=== PATIENT | female | born 2000 | race Caucasian/White ===

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

== ENCOUNTER 2019-01-29 19:11 | Emergency (ER) | payer MEDICAID ==
--- NOTE | 2019-01-29 19:48 | ER Document Report ---
ED Medical Screen (RME) - General Chief Complaint: Irregular Pulse Stated Complaint: RAPID HEART RATE Time Seen by Provider: 01/29/19 19:45 Primary Care Provider: ELMA LUIS MD [Primary Care Provider] - Follow up as needed Mode of Arrival: Ambulatory Information source: Patient Notes: Patient presents emergency department complaints of palpitations. Reports her heart will beat fast and then slowed down. Denies other symptoms such as nausea fever vomiting diarrhea. Patient is approximately 33 weeks G1, P0 denies abdominal pain. Denies pain with void. Denies vaginal bleeding. I have greeted and performed a rapid initial assessment of this patient. A comprehensive ED assessment and evaluation of the patient, analysis of test results and completion of the medical decision making process will be conducted by additional ED providers. Dictation of this chart was performed using voice recognition software; therefore, there may be some unintended grammatical errors. TRAVEL OUTSIDE OF THE [place] IN LAST 30 DAYS: No - Related Data Allergies/Adverse Reactions: No Known Allergies Allergy (Verified 01/29/19 19:35) Past Medical History - Social History Frequency of alcohol use: None Drug Abuse: None Renal/ Medical History: Denies: Hx Peritoneal Dialysis Physical Exam - Vital signs Vitals: Temp Pulse Resp BP Pulse Ox 98.1 F 66 20 121/68 98 01/29/19 19:12 01/29/19 19:12 01/29/19 19:12 01/29/19 19:12 01/29/19 19:12 Course - Vital Signs Vital signs: Temp Pulse Resp BP Pulse Ox 98.1 F 66 20 121/68 98 01/29/19 19:30 01/29/19 19:30 01/29/19 19:30 01/29/19 19:30 01/29/19 19:30 Doctor's Discharge - Discharge Referrals: ELMA LUIS MD [Primary Care Provider] - Follow up as needed
[2019-01-29 20:21] LABS: ABSOLUTE EOSINOPHILS # (AUTO) 0.1 10^3/uL (0.0-0.6); ABSOLUTE LYMPHOCYTES (AUTO) 3.4 10^3/uL (0.5-4.7); ABSOLUTE MONOCYTES (AUTO) 0.9 10^3/uL (0.1-1.4); ABSOLUTE NEUT (AUTO) 9.3 10^3/uL (1.7-8.2); BASOPHILS % (AUTO) 0.3 % (0-2); EOSINOPHILS % (AUTO) 0.7 % (0-6); HEMATOCRIT 32.9 % (36.0-47.0); HEMOGLOBIN 11.5 g/dL (12.0-15.5); LYMPHOCYTES % (AUTO) 24.5 % (13-45); MEAN CORPUSCULAR HEMOGLOBIN 30.5 pg (27.0-33.4); MEAN CORPUSCULAR VOLUME 87 fl (80-97); MONOCYTES % (AUTO) 6.4 % (3-13); PLATELET COUNT 287 10^3/uL (150-450); RED BLOOD COUNT 3.78 10^6/uL (3.72-5.28); RED CELL DISTRIBUTION WIDTH 13.6 % (11.5-14.0); SEGMENTED NEUTROPHILS % (AUTO) 68.1 % (42-78); TOTAL CELLS COUNTED % (AUTO) 100 %; WHITE BLOOD COUNT 13.7 10^3/uL (4.0-10.5)
[2019-01-29 20:22] LABS: APPEARANCE,URINE SLIGHTLY-CLOUDY; BILIRUBIN,URINE NEGATIVE (NEGATIVE); CALCIUM OXALATE CRYSTALS,URINE FEW /HPF; COLOR,URINE YELLOW; GLUCOSE, URINE NEGATIVE (NEGATIVE); KETONES,URINE NEGATIVE (NEGATIVE); LEUKOCYTE ESTERASE,URINE LARGE (NEGATIVE); NITRITE,URINE NEGATIVE (NEGATIVE); PROTEIN,URINE 30 mg/dL (NEGATIVE); URINE SPECIFIC GRAVITY 1.019
[2019-01-29 20:33] LABS: ALBUMIN 3.7 g/dL (3.7-5.6); ALKALINE PHOSPHATASE 76 U/L (50-135); ANION GAP 9 (5-19); ASPARTATE AMINO TRANSFERASE 11 U/L (5-30); BILIRUBIN,TOTAL 0.6 mg/dL (0.2-1.3); BLOOD UREA NITROGEN 6 mg/dL (7-20); CALCIUM 9.5 mg/dL (8.4-10.2); CARBON DIOXIDE 22 mmol/L (22-30); CHLORIDE 105 mmol/L (98-107); GLUCOSE 86 mg/dL (75-110); POTASSIUM 3.8 mmol/L (3.6-5.0); TOTAL PROTEIN 6.9 g/dL (6.3-8.2)
--- NOTE | 2019-01-30 01:24 | ER Document Report ---
ED General - General Chief Complaint: Irregular Pulse Stated Complaint: RAPID HEART RATE Time Seen by Provider: 01/29/19 19:45 Primary Care Provider: ELMA LUIS MD [Primary Care Provider] - Follow up as needed Mode of Arrival: Ambulatory TRAVEL OUTSIDE OF THE [place] IN LAST 30 DAYS: No - HPI Patient complains to provider of: palpitations Onset: Other - over the last 3 days Onset/Duration: Sudden Quality of pain: No pain Severity: Moderate Pain Level: 3 Associated symptoms: None Exacerbated by: Denies Relieved by: Denies Similar symptoms previously: No Recently seen / treated by doctor: No Notes: 18 year old female who is 33 weeks here for 3 days of palpitations. The patient says she has had 3 episodes of palpiations over the last 3 days (each lasts only a couple minutes). The patient says when it happens she has some mild SOB and dizziness. The patient denies recent fevers, chills, sweats, nausea, vomiting, chest pain, cough, congestion. The is the patient's first . - Related Data Allergies/Adverse Reactions: No Known Allergies Allergy (Verified 01/29/19 19:35) Past Medical History - General Information source: Patient - Social History Smoking Status: Former Smoker Frequency of alcohol use: None Drug Abuse: None Family History: Arthritis, CAD, COPD, CVA, DM, Hyperlipidemia, Hypertension, Malignancy Patient has suicidal ideation: No Patient has homicidal ideation: No Renal/ Medical History: Reports: Other - patient is 33 weeks . Denies: Hx Peritoneal Dialysis Review of Systems - Review of Systems Constitutional: No symptoms reported EENT: No symptoms reported Cardiovascular: Palpitations, Dizziness Respiratory: Short of breath Gastrointestinal: No symptoms reported Genitourinary: No symptoms reported Female Genitourinary: Musculoskeletal: No symptoms reported Skin: No symptoms reported Hematologic/Lymphatic: No symptoms reported Neurological/Psychological: No symptoms reported Physical Exam - Vital signs Vitals: Temp Pulse Resp BP Pulse Ox 98.1 F 66 20 121/68 98 01/29/19 19:12 01/29/19 19:12 01/29/19 19:12 01/29/19 19:12 01/29/19 19:12 - Notes Notes: GENERAL: Well-appearing, well-nourished and in no acute distress. HEAD: Atraumatic, normocephalic. EYES: Pupils equal round and reactive to light, extraocular movements intact, sclera anicteric, conjunctiva are normal. ENT: TMs normal, nares patent, oropharynx clear without exudates. Moist mucous membranes. NECK: Normal range of motion, supple without lymphadenopathy or JVD. LUNGS: Breath sounds clear to auscultation bilaterally and equal. No wheezes rales or rhonchi. HEART: Regular rate and rhythm without murmurs, rubs or gallops. ABDOMEN: Soft, nontender, normoactive bowel sounds. No guarding, no rebound. No masses appreciated. Distention due to being . EXTREMITIES: Normal range of motion, no pitting or edema. No clubbing or cyanosis. NEUROLOGICAL: Cranial nerves II through XII grossly intact. Normal speech, normal gait. PSYCH: Normal mood, normal affect. SKIN: Warm, Dry, normal turgor, no rashes or lesions noted. Course - Re-evaluation Re-evalutation: The patient has had some episodes of palpitations over the last several days. She is and her UA looks infected although she is not having UTI symptoms. Will treat with macrobid and encourage PO fluid intake. Patient has an unremarkable EKG, normal chemistries, she is very low risk for ACS and she is PERC negative making her low risk for PE. Patient told to follow up with her PCP and [facility] doctors. - Vital Signs Vital signs: Temp Pulse Resp BP Pulse Ox 97.4 F 65 20 101/58 L 100 01/30/19 01:29 01/30/19 01:29 01/30/19 01:29 01/30/19 01:29 01/30/19 01:29 - Laboratory Result Diagrams: 01/29/19 20:05 01/29/19 20:05 Laboratory results interpreted by me: 01/29/19 01/29/19 01/29/19 19:50 20:05 20:05 WBC 13.7 H Hgb 11.5 L Hct 32.9 L Absolute Neuts (auto) 9.3 H Sodium 136.0 L BUN 6 L Urine Protein 30 H Urine Urobilinogen 2.0 H Ur Leukocyte Esterase LARGE H - EKG Interpretation by Vt EKG shows normal: Sinus rhythm, ST-T Waves - T wave inverted in III Rate: Normal Rhythm: NSR Discharge - Discharge Clinical Impression: Palpitation Condition: Stable Disposition: HOME, SELF-CARE Instructions: Palpitations (Irregular or Rapid Heartrate) ([facility]), Urinary Tract Infection ([facility]) Additional Instructions: Take antibiotics as prescribed for a UTI. Follow up with your primary care doctor and your [facility] PROGRAM ANALYST Doctor and tell them about your ER visit for palpitations. Seek medical attention for a persistently elevated heart rate or if worse in anyway. Prescriptions: Nitrofurantoin/Nitrofuran Mac [Macrobid 100 mg Capsule] 1 tab PO BID #10 capsule Referrals: ELMA LUIS MD [Primary Care Provider] - Follow up as needed
[2019-01-30 01:30] VITALS: BP 101/58
== END 2019-01-30 02:13 | disposition home or self-care (01) ==
LOC: ER 19:11
DX: O26.893 Other specified pregnancy related conditions, third trimester (principal); R00.2 Palpitations; R42 Dizziness and giddiness; R06.02 Shortness of breath; Z3A.33 33 weeks gestation of pregnancy; Z87.891 Personal history of nicotine dependence
CPT/HCPCS: 36415; 80053; 81001; 85025; 99284

== ENCOUNTER 2019-03-02 14:32 | Outpatient (CLI) | payer MEDICAID ==
[2019-03-02 15:01] LABS: APPEARANCE,URINE SLIGHTLY-CLOUDY; BILIRUBIN,URINE NEGATIVE (NEGATIVE); COLOR,URINE AMBER; GLUCOSE, URINE NEGATIVE (NEGATIVE); KETONES,URINE NEGATIVE (NEGATIVE); LEUKOCYTE ESTERASE,URINE MODERATE (NEGATIVE); NITRITE,URINE NEGATIVE (NEGATIVE); PROTEIN,URINE 100 mg/dL (NEGATIVE); URINE SPECIFIC GRAVITY 1.024
[2019-03-02 15:15] LABS: URINE AMPHETAMINES SCREEN NEGATIVE; URINE BARBITURATES SCREEN NEGATIVE; URINE BENZODIAZEPINES SCREEN NEGATIVE; URINE METHADONE SCREEN NEGATIVE; URINE PHENCYCLIDINE SCREEN NEGATIVE
--- NOTE | 2019-03-02 15:17 | Non Stress Test Report ---
Non Stress Test Datetime Report Generated by CPN: 03/02/2019 15:17 DEMOGRAPHIC Test Number: 1 EGA NST: 38.1 INDICATION Indication for Study (NST) Other: false labor MONITORING Monitor Explained: Monitor Explained; Test Explained; Patient Verbalized Understanding Time on Monitor: 03/02/2019 14:45 Time off Monitor: 03/02/2019 15:15 NST Duration: 30 NST INTERVENTIONS NST Interventions: PO Hydration; Reposition Patient Physician Notified NST: Dr. Simeon BABY A: [id number] BABY A Movement : Present Contraction Frequency : none FHR Baseline : 135 Accelerations : 15X15 Decelerations : None Variability : Moderate 6-25bpm NST Review: Meets Criteria for Reactive NST NST Review and Verified By : TMartin,RN NST Results: Reactive NST REPORT Report Trigger: Send Report
[2019-03-02 15:25] LABS: URINE COCAINE SCREEN NEGATIVE
[2019-03-02] MEDS ORDERED: HYDROXYZINE PAMOATE 50 MG CAPSULE PO ONE (15:27)
[2019-03-02 15:29] LABS: URINE MARIJUANA (THC) SCREEN UNCONFIRMED POSITIVE
[2019-03-02] MEDS ORDERED: HYDROXYZINE PAMOATE 50 MG CAPSULE ONE (15:34)
== END 2019-03-02 15:41 | disposition home or self-care (01) ==
LOC: LC 14:32
PROVIDERS: ATTEND Obstetrics & Gynecology
PROC: 4A1HXCZ Monitoring of Products of Conception, Cardiac Rate, External Approach (ICD-10-PCS; principal; 2019-03-02)
DX: O47.1 False labor at or after 37 completed weeks of gestation (principal); Z3A.38 38 weeks gestation of pregnancy
CPT/HCPCS: 59025; 81005; 80307; G0480 ×2; J3490; 80349

== ENCOUNTER 2019-03-15 14:40 | Inpatient (IN) | payer MEDICAID ==
[2019-03-24] MEDS ORDERED: RINGERS SOLUTION,LACTATED 1,000 ML IV PRN (12:54)
[2019-03-24] MEDS ORDERED: OXYTOCIN/NORMAL SALINE 20 UNIT/1,000 ML RTUINJ IV PRN ×2 (12:54→23:23)
[2019-03-24] MEDS ORDERED: PENICILLIN G POTASSIUM 5,000,000 UNIT in DEXTROSE 5%-WATER 100 ML IV ONE (12:54)
[2019-03-24] MEDS ORDERED: DINOPROSTONE 10 MG VAGINAL INSERT.SR PV PRN (12:54)
[2019-03-24 13:39] LABS: BACTERIA (WET MOUNT) 4+ BACTERIA SEEN; EPITHELIALS (WET MOUNT) 4+ EPITHELIALS SEEN; T.VAGINALIS (WET MOUNT) NO TRICHOMONAS SEEN; WBCS (WET MOUNT) 4+ WBCS SEEN; YEAST (WET MOUNT) NO YEAST SEEN
[2019-03-24 13:57] LABS: URINE AMPHETAMINES SCREEN NEGATIVE; URINE BARBITURATES SCREEN NEGATIVE; URINE BENZODIAZEPINES SCREEN NEGATIVE; URINE COCAINE SCREEN NEGATIVE; URINE METHADONE SCREEN NEGATIVE; URINE PHENCYCLIDINE SCREEN NEGATIVE
[2019-03-24 13:59] LABS: URINE MARIJUANA (THC) SCREEN UNCONFIRMED POSITIVE
[2019-03-24] MEDS ORDERED: OXYTOCIN 10 UNIT/ML VIAL ONE (14:14)
[2019-03-24] MEDS ORDERED: MISOPROSTOL 0.2 MG TABLET ONE (14:14)
[2019-03-24] MEDS ORDERED: LIDOCAINE 1% INJ-PF (10 MG/ML) 30 ML SDV ONE (14:15)
[2019-03-24] MEDS ORDERED: OXYTOCIN/NORMAL SALINE 20 UNIT/1,000 ML RTUINJ ONE (14:15)
[2019-03-24] MEDS ORDERED: METRONIDAZOLE 500 MG TABLET ONE (14:15)
[2019-03-24] MEDS ORDERED: PENICILLIN G-K 5 MILLION UNIT VIAL ONE ×3 (14:15→22:46)
[2019-03-24 14:25] LABS: ABSOLUTE EOSINOPHILS # (AUTO) 0.1 10^3/uL (0.0-0.6); ABSOLUTE LYMPHOCYTES (AUTO) 1.9 10^3/uL (0.5-4.7); ABSOLUTE MONOCYTES (AUTO) 0.8 10^3/uL (0.1-1.4); ABSOLUTE NEUT (AUTO) 8.7 10^3/uL (1.7-8.2); BASOPHILS % (AUTO) 0.2 % (0-2); EOSINOPHILS % (AUTO) 0.6 % (0-6); HEMATOCRIT 33.1 % (36.0-47.0); HEMOGLOBIN 11.5 g/dL (12.0-15.5); LYMPHOCYTES % (AUTO) 16.7 % (13-45); MEAN CORPUSCULAR HGB CONC 34.8 g/dL (32.0-36.0); MEAN CORPUSCULAR VOLUME 89 fl (80-97); PLATELET COUNT 257 10^3/uL (150-450); RED BLOOD COUNT 3.72 10^6/uL (3.72-5.28); RED CELL DISTRIBUTION WIDTH 14.1 % (11.5-14.0); SEGMENTED NEUTROPHILS % (AUTO) 75.5 % (42-78); TOTAL CELLS COUNTED % (AUTO) 100 %; WHITE BLOOD COUNT 11.5 10^3/uL (4.0-10.5)
[2019-03-24] MEDS ORDERED: METRONIDAZOLE 500 MG TABLET PO ONE (14:30)
--- NOTE | 2019-03-24 15:16 | Admission Physical ---
Datetime Report Generated by CPN: 03/24/2019 15:15 CURRENT ADMISSION Chief Complaint: Scheduled Induction of Labor Indication for Induction: Post Dates Admit Impression : Term, Intrauterine Admit Plan: Admit to Unit; Initiate Labor Induction Protocol ALLERGIES Medication Allergies: No Medication Allergies: No Known Allergies (01/29/2019) Latex: No Latex Allergies Food Allergies: None Environmental Allergies: None OBSTETRICAL HISTORY EDC: 03/15/2019 00:00 : 1 Para: 0 Term: 0 : 0 SAB: 0 IAB: 0 Ectopic: 0 Livin Cesareans: 0 VBACs: 0 Multiple Births: 0 Gestational Diabetes: No Rh Sensitization: No Incompetent Cervix: No ADEEL: No Infertility: No ART Treatment: No Uterine Anomaly: No IUGR: No Hx Previous C/S: No Macrosomia: No Hx Loss/Stillborn: No PIH: No Hx : No Placenta Previa/Abruption: No Depression/PP Depression: No PTL/PROM: No Post Hemorrhage: No Obstetrical History Comments: G1- Current SEE RECORDS Alcohol: No Marijuana : Yes Marijuana Frequency: Occasional Last Used: 11/09/2018 00:00 Marijuana Comments: Pt states, "uses occasinally for back pain." Cocaine: No Other Illicit Drugs: No Cigarettes: Former Smoker. [id number] Cigarette Frequency: < 5 per day Cigarette Comments: Stopped when found out . MEDICAL HISTORY Diabetes: No Blood Transfusion: No Pulmonary Disease (Asthma, TB): No Breast Disease: No Hypertension: No Technology Risk Intern Surgery: No Heart Disease: No Hosp/Surgery: No Autoimmune Disorder: No Anesthetic Complications: No Kidney Disease: No Abnormal Pap Smear: No Neuro/Epilepsy: No Psychiatric Disorders: No Other Medical Diseases: No Hepatitis/Liver Disease: No Significant Family History: Yes Varicosities/Phlebitis: No Trauma/Violence : No Thyroid Dysfunction: No Medical History Comments: Maternal father born with 1 kidney, heart attack. INFECTIOUS HISTORY Gonorrhea: No Genital Herpes: No Chlamydia: Yes Tuberculosis: No Syphilis: No Hepatitis: No HIV/AIDS Exposure: No Rash or Viral Illness: No HPV: No Infectious History Comments: tested positive for trich 03/17/2019, no ANNA yet, hx of chladmydia with x 2, ANNA 01/07/2019 PHYSICAL EXAM General: Normal HEENT: Normal Neurologic: Normal Thyroid: Deferred Heart: Normal Lungs: Normal Breast: Deferred Back: Normal Abdomen: Normal Genitourinary Exam: Normal Extremities: Normal DTRs: Deferred Pelvic Type: Adequate Vital Signs: Reviewed; Within Normal Limits VAGINAL EXAM Dilatation: 3 Effacement: 50 Station: -1 Contraction Comments: q 2 mins MEMBRANES Pooling: Negative Membranes: Intact FETUS A EGA: 41.2 Monitoring: External US FHR- Baseline: 135 Variability: Moderate 6-25bpm Accelerations: 15X15 Decelerations: None Estimated Weight (gm): 3600 Presentation: Vertex Admit Comment: at 41w2d admitted for IOL. GBS pos, hx pos trich and chlamydia during this . penicillin started for GBS prophylaxis, flagyl given in case of trich still present. P: pitocin IOL, anticipate PLANS FOR LABOR AND DELIVERY Labor and Delivery: None Pain Management: Natural Feeding Preference: Formula Benefit of Breast Feed Discussed: Yes Circumcision: N/A INFORMED CONSENT Assignment: Reema Welch MD Signature: with User ID: [email or web address] : with User ID: [email or web address]
[2019-03-24] MEDS: PENICILLIN G POTASSIUM 2,500,000 UNIT in DEXTROSE 5%-WATER 50 ML IV SCH ×2 (18:28→22:40)
[2019-03-24] MEDS ORDERED: EPHEDRINE SULFATE INJ 50 MG/1 ML AMPULE ONE (22:05)
[2019-03-24] MEDS ORDERED: BUPIVACAINE HCL 0.25 % INJ/PF (2.5 MG/1 ML) 30 ML VIAL ONE (22:06)
[2019-03-24] MEDS ORDERED: FENTANYL/BUPIVACAINE/NS/PF 0 MCG/0 ML RTUINJ EPI ONE (22:06)
[2019-03-24] MEDS ORDERED: ACETAMINOPHEN 650 MG SUPP.RECT PR PRN (23:23)
[2019-03-24] MEDS ORDERED: PSEUDOEPHEDRINE HCL 30 MG TABLET PO PRN (23:23)
[2019-03-24] MEDS ORDERED: MEASLES,MUMPS&RUBELLA VACC/PF 0.5 ML VIAL SUBCUT PRN (23:23)
[2019-03-24] MEDS ORDERED: PROMETHAZINE HCL 25 MG SUPP.RECT PR PRN (23:23)
[2019-03-24] MEDS ORDERED: DIPHENHYDRAMINE HCL 25 MG CAPSULE PO PRN (23:23)
[2019-03-24] MEDS ORDERED: PROMETHAZINE HCL 25 MG TABLET PO PRN (23:23)
[2019-03-24] MEDS ORDERED: DIPH/PERTUSS(ACELL)/TETANUS VAC/PF 0.5 ML SYR (>=10YO) IM PRN (23:23)
[2019-03-24] MEDS ORDERED: ZOLPIDEM TARTRATE 5 MG TABLET PO PRN (23:23)
[2019-03-24] MEDS ORDERED: ACETAMINOPHEN WITH CODEINE #3 TABLET PO PRN ×2 (23:23)
[2019-03-24] MEDS ORDERED: NA PHOS,M-B/NA PHOS,DI-BA (ADULT) 133 ML ENEMA PR PRN (23:23)
[2019-03-24] MEDS ORDERED: DIBUCAINE 1% OINTMENT 28 GM TP PRN (23:23)
[2019-03-24] MEDS ORDERED: PROMETHAZINE HCL INJ 25 MG/1 ML VIAL IV PRN (23:23)
[2019-03-24] MEDS ORDERED: GLYCERIN/WITCH HAZEL LEAF 1 EACH MED..WIPE TP PRN (23:23)
[2019-03-24] MEDS ORDERED: MAGNESIUM HYDROXIDE SUSP 30 ML UDCUP PO PRN (23:23)
[2019-03-24] MEDS ORDERED: BENZOCAINE/MENTHOL AEROSOL SPRAY 56 ML TOP PRN (23:23)
[2019-03-25] MEDS ORDERED: IBUPROFEN 800 MG TABLET ONE (00:12)
[2019-03-25 03:24] LABS: CHLAM PCR NOT DETECTED (NOT DETECT)
[2019-03-25] MEDS: IBUPROFEN 800 MG TABLET PO SCH ×3 (06:35→23:14)
[2019-03-25 08:32] LABS: HEMATOCRIT 30.5 % (36.0-47.0); HEMOGLOBIN 10.6 g/dL (12.0-15.5); MEAN CORPUSCULAR HEMOGLOBIN 30.9 pg (27.0-33.4); MEAN CORPUSCULAR HGB CONC 34.8 g/dL (32.0-36.0); MEAN CORPUSCULAR VOLUME 89 fl (80-97); PLATELET COUNT 251 10^3/uL (150-450); RED BLOOD COUNT 3.43 10^6/uL (3.72-5.28); RED CELL DISTRIBUTION WIDTH 13.9 % (11.5-14.0); WHITE BLOOD COUNT 14.7 10^3/uL (4.0-10.5)
[2019-03-25] MEDS: PRENATAL VITAMIN W DHA CAPSULE PO SCH (09:18)
[2019-03-25] MEDS: FAMOTIDINE 20 MG TABLET PO SCH ×3 (09:18→23:14)
[2019-03-25] MEDS: SENNOSIDES/DOCUSATE 8.6-50 MG 1 EACH TABLET PO SCH (09:19)
[2019-03-25] MEDS: FERROUS SULFATE 325 MG TABLET PO SCH ×2 (09:19→17:50)
[2019-03-25] MEDS: DOCUSATE SODIUM 100 MG CAPSULE PO SCH ×2 (09:19→17:50)
--- NOTE | 2019-03-25 10:36 | PDOC PROGRESS REPORT ---
Subjective-OB Progress Note for:: 03/25/19 Subjective: Doing well, no c/o, feeling good, scant bleeding, family at BS, Physical Exam (OB) Vital Signs: Temp Pulse Resp BP Pulse Ox 97.9 F 66 17 112/55 L 100 03/25/19 07:44 03/25/19 07:44 03/25/19 07:44 03/25/19 07:44 03/25/19 07:44 Intake & Output 03/24/19 03/25/19 03/26/19 06:59 06:59 06:59 Weight 110.5 kg - PIH/Pre-Eclampsia Headache: Absent Epigastric Pain: No Visual Changes: No - Lochia Lochia Amount: Scant < 10 ml Lochia Color: Rubra/Red - Abdomen Description: Soft Hernia Present: No Fundal Description: Firm, Midline Fundal Height: u/u - u/2 Objective-Diagnostic Laboratory: 03/25/19 07:54 03/24/19 03/24/19 03/25/19 14:09 14:09 07:54 WBC 11.5 H 14.7 H RBC 3.72 3.43 L Hgb 11.5 L 10.6 L Hct 33.1 L 30.5 L MCV 89 89 MCH 31.0 30.9 MCHC 34.8 34.8 RDW 14.1 H 13.9 Plt Count 257 251 Seg Neutrophils % 75.5 Blood Type O POSITIVE Antibody Screen NEGATIVE Assessment and Plan(PN) - Assessment and Plan (1) Marijuana abuse Is this a current diagnosis for this admission?: Yes (2) GBS (group B Streptococcus carrier), +RV culture, currently Is this a current diagnosis for this admission?: Yes (3) Delivery normal Is this a current diagnosis for this admission?: Yes (4) Encounter for planned induction of labor Is this a current diagnosis for this admission?: Yes (5) Post-dates Qualifiers: Post-term type: 40-42 weeks gestation Qualified Code(s): O48.0 - Post-term Is this a current diagnosis for this admission?: Yes - Time Spent with Patient Time with patient: Less than 15 minutes Medications reviewed and adjusted accordingly: Yes - Disposition Anticipated Discharge: Home Within: within 24 hours
[2019-03-26] MEDS: IBUPROFEN 800 MG TABLET PO SCH ×2 (07:31→14:53)
[2019-03-26 07:52] VITALS: BP 105/49
[2019-03-26] MEDS: SENNOSIDES/DOCUSATE 8.6-50 MG 1 EACH TABLET PO SCH (09:30)
[2019-03-26] MEDS: PRENATAL VITAMIN W DHA CAPSULE PO SCH (09:30)
[2019-03-26] MEDS: DOCUSATE SODIUM 100 MG CAPSULE PO SCH (09:30)
[2019-03-26] MEDS: FERROUS SULFATE 325 MG TABLET PO SCH (09:30)
[2019-03-26] MEDS: FAMOTIDINE 20 MG TABLET PO SCH (09:30)
--- NOTE | 2019-03-26 09:57 | PDOC DISCHARGE SUMMARY ---
Impression - Admit/DC Date/PCP Admission Date/Primary Care Provider: 03/24/19 12:30 NADINE BRYANT MD Discharge Date: 03/26/19 - PP day #2, doing well, O+, Rubella Non-immune, , UOB voiding - Discharge Diagnosis (1) Delivery normal Is this a current diagnosis for this admission?: Yes (2) Encounter for planned induction of labor Is this a current diagnosis for this admission?: Yes (3) GBS (group B Streptococcus carrier), +RV culture, currently Is this a current diagnosis for this admission?: Yes (4) Marijuana abuse Is this a current diagnosis for this admission?: Yes (5) Post-dates Is this a current diagnosis for this admission?: Yes - Additional Information Resuscitation Status: Full Code Discharge Diet: As Tolerated, Regular Discharge Activity: Activity As Tolerated, No Lifting Over 10 Pounds, Pelvic Rest Referrals: [facility] [Provider Group] Prescriptions: Ibuprofen [Motrin 800 mg Tablet] 800 mg PO Q8 #60 tablet Home Medications: Pnv No.95/Ferrous Fum/Folic AC [ Vitamin Tablet] 1 tab PO DAILY 08/02/18 Ibuprofen [Motrin 800 mg Tablet] 800 mg PO Q8 #60 tablet 03/26/19 HPI Reason(s) for Admission: Onset of Labor Procedures: Ultrasound Intrapartum Procedure(s): Spontaneous Vaginal Delivery Complication(s): Laceration-Perineal Laceration-Degree: 2nd Hospital Course Hospital Course: routine Results Laboratory Results: WBC 14.7 10^3/uL (4.0-10.5) H 03/25/19 07:54 RBC 3.43 10^6/uL (3.72-5.28) L 03/25/19 07:54 Hgb 10.6 g/dL (12.0-15.5) L 03/25/19 07:54 Hct 30.5 % (36.0-47.0) L 03/25/19 07:54 MCV 89 fl (80-97) 03/25/19 07:54 MCH 30.9 pg (27.0-33.4) 03/25/19 07:54 MCHC 34.8 g/dL (32.0-36.0) 03/25/19 07:54 RDW 13.9 % (11.5-14.0) 03/25/19 07:54 Plt Count 251 10^3/uL (150-450) 03/25/19 07:54 Lymph % (Auto) 16.7 % (13-45) 03/24/19 14:09 Atkinson % (Auto) 7.0 % (3-13) 03/24/19 14:09 Eos % (Auto) 0.6 % (0-6) 03/24/19 14:09 Baso % (Auto) 0.2 % (0-2) 03/24/19 14:09 Absolute Neuts (auto) 8.7 10^3/uL (1.7-8.2) H 03/24/19 14:09 Absolute Lymphs (auto) 1.9 10^3/uL (0.5-4.7) 03/24/19 14:09 Absolute Monos (auto) 0.8 10^3/uL (0.1-1.4) 03/24/19 14:09 Absolute Eos (auto) 0.1 10^3/uL (0.0-0.6) 03/24/19 14:09 Absolute Basos (auto) 0.0 10^3/uL (0.0-0.2) 03/24/19 14:09 Seg Neutrophils % 75.5 % (42-78) 03/24/19 14:09 Epi Cells (Wet Prep) 4+ EPITHELIALS SEEN 03/24/19 13:25 Bacteria (Wet Prep) 4+ BACTERIA SEEN 03/24/19 13:25 Trichomonas (Wet Prep) NO TRICHOMONAS SEEN 03/24/19 13:25 Vaginal WBC 4+ WBCS SEEN 03/24/19 13:25 Vaginal Yeast NO YEAST SEEN 03/24/19 13:25 Urine Opiates Screen NEGATIVE 03/24/19 12:46 Urine Methadone Screen NEGATIVE 03/24/19 12:46 Ur Barbiturates Screen NEGATIVE 03/24/19 12:46 Ur Phencyclidine Scrn NEGATIVE 03/24/19 12:46 Ur Amphetamines Screen NEGATIVE 03/24/19 12:46 U Benzodiazepines Scrn NEGATIVE 03/24/19 12:46 Urine Cocaine Screen NEGATIVE 03/24/19 12:46 U Marijuana (THC) Screen UNCONFIRMED POSITIVE 03/24/19 12:46 RPR NONREACTIVE (NONREACTIVE) 03/24/19 14:09 Chlamydia DNA (PCR) NOT DETECTED (NOT DETECT) 03/25/19 01:10 N.gonorrhoeae DNA (PCR) NOT DETECTED (NOT DETECT) 03/25/19 01:10 Blood Type O POSITIVE 03/24/19 14:09 Antibody Screen NEGATIVE 03/24/19 14:09 Plan Health Concerns: decrease THC use Plan of Treatment: d/c home, f/up with [facility] in 4 wks for PP check Time Spent: Less than 30 Minutes
--- NOTE | 2019-03-27 14:03 | Delivery Summary ---
Del Sum A-C Datetime Report Generated by CPN: 03/27/2019 14:03 DELIVERY PERSONNEL DELIVERY PERSONNEL: [id number] Delivery Doctor:: Reema Welch MD Labor and Delivery Nurse:: Helen Green RNlabor relations officer Nurse:: LAURA Musa Nursery Nurse:: Marlin Kothari RN Nursery Nurse:: Rebecca RN MATERNAL INFORMATION Delivery Anesthesia: None Medications After Delivery: Pitocin Drip 20 Units/1000ml NSS Estimated Blood Loss (ml): 250 Delivery QBL: 300 Delivery QBL Comment: del 300 rec 20 total 320 Maternal Complications: Precipitous Labor (<3hrs) LABOR SUMMARY EDC: 03/15/2019 00:00 No. Babies in Womb: 1 Labor Anesthesia: None LABOR INFORMATION Reason for Induction: Post Dates Onset of Labor: 03/24/2019 19:30 Complete Dilatation: 03/24/2019 22:45 Oxytocin: Induction Group B Beta Strep: positive Antibiotics # of Doses: 3 Antibiotics # of Doses: 3 Antibiotics Time of Last Dose: 2250 Name of Antibiotic Given: Penicillin Steroids Given: None Reason Steroids Not Administered: Not Applicable MEMBRANES Membranes Rupture Method: Spontaneous Rupture of Membranes: 03/24/2019 22:33 Length of Rupture (hr): 0.42 Amniotic Fluid Color: Light Meconium Amniotic Fluid Amount: Large Amniotic Fluid Odor: Normal STAGES OF LABOR Stage 1 hr: 3 Stage 1 min: 15 Stage 2 hr: 0 Stage 2 min: 13 Stage 3 hr: 0 Stage 3 min: 4 Total Time in Labor hr: 3 Total Time in Labor min: 32 VAGINAL DELIVERY Episiotomy: None Laceration #1: Perineal Laceration Extension #1: Second Degree Laceration #2: None Laceration Extension #2: N/A Laceration #3: None Laceration Extension #3: N/A Laceration Repair: Yes Laceration Repair Note: Small perineal laceration repaired with 3-0 chromic in usual fashion. Lidocaine was used to numb the area. There is a nickel size hematoma at 6:00 on the perineum. Sponge Count Correct: Vaginal Sweep Performed Sharps Count Correct: Yes CSECTION DELIVERY Primary Indication: N/A BABY A INFORMATION Infant Delivery Date/Time: 03/24/2019 22:58 Method of Delivery: Vaginal Born in Route : No : N/A Forceps: N/A Vacuum Extraction: N/A Shoulder Dystocia : No PRESENTATION/POSITION BABY A Presentation: Cephalic Cephalic Presentation: Vertex Vertex Position: Right Occipital Anterior Breech Presentation: N/A PLACENTA INFORMATION BABY A Placenta Delivery Time : 03/24/2019 23:02 Placenta Method of Delivery: Spontaneous Placenta Status: Delivered SCORES BABY A Heart Rate 1 min: >100 bpm Resp Effort 1 min: Good Cry Reflex Irritability 1 min: Cough or Sneeze or Pulls Away Muscle Tone 1 min: Active Motion Color 1 min: Body [place], Extremities Blue Resuscitation Effort 1 min: Tactile Stimulation SCORE 1 MIN: 9 Heart Rate 5 min: >100 bpm Resp Effort 5 min: Good Cry Reflex Irritability 5 min: Cough or Sneeze or Pulls Away Muscle Tone 5 min: Active Motion Color 5 min: Body [place], Extremities Blue Resuscitation Effort 5 min: Tactile Stimulation SCORE 5 MIN: 9 INFORMATION BABY A Gestational Age at Delivery: 41.2 Gestational Status: Late Term- 41- 41.6 Weeks Outcome : Liveborn Infant Condition : Stable Infant Sex: Female WEIGHT/LENGTH BABY A Infant Birthweight (gm): 3440 Infant Weight (lb): 7 Weight (oz): 9 Infant Length (in): 21.00 Length (cm): 53.34 CORD INFORMATION BABY A No. Cord Vessels: 3 Nuchal Cord : Around Neck x1, Loose Cord Blood Taken: Yes-For Eval (Mom's Blood Type - or O+) Infant Suction: Mouth ASSESSMENT BABY A Infant Complications: None; Meconium Physical Findings at Delivery: Within Normal Limits Respirations: Appears Normal Skin to Skin: Yes Transferred To: Remains with Mother SIGNATURES Signature: with User ID: [email or web address] : I was personally available for consultation and serving as supervising physician for the MLP.
== END 2019-03-26 15:23 | disposition home or self-care (01) | DRG 806 ==
LOC: LR 03-24 12:30 → 2S 03-25 02:35
PROVIDERS: ADMIT Obstetrics & Gynecology; ATTEND Obstetrics & Gynecology
PROC: 10E0XZZ Delivery of Products of Conception, External Approach (ICD-10-PCS; principal; 2019-03-24)
PROC: 0KQM0ZZ Repair Perineum Muscle, Open Approach (ICD-10-PCS; 2019-03-24)
PROC: 3E0234Z Introduction of Serum, Toxoid and Vaccine into Muscle, Percutaneous Approach (ICD-10-PCS; 2019-03-26)
DX: O48.0 Post-term pregnancy (principal); O99.324 Drug use complicating childbirth; Z37.0 Single live birth; Z3A.41 41 weeks gestation of pregnancy; O99.824 Streptococcus B carrier state complicating childbirth; F12.90 Cannabis use, unspecified, uncomplicated; O62.3 Precipitate labor; O70.1 Second degree perineal laceration during delivery; O69.81X0 Labor and delivery complicated by cord around neck, without compression, not applicable or unspecified; O77.0 Labor and delivery complicated by meconium in amniotic fluid; Z23 Encounter for immunization
CPT/HCPCS: 36415; 80307; 80349; 85025; 85027; 86592; 86850; 86900; 86901; 87210; 87491; 87591; 90707; G0480; J2540; J2590; J3010; J3490

== ENCOUNTER 2019-03-21 07:50 | Outpatient (CLI) | payer MEDICAID ==
[2019-03-21 08:24] LABS: APPEARANCE,URINE SLIGHTLY-CLOUDY; BILIRUBIN,URINE NEGATIVE (NEGATIVE); COLOR,URINE YELLOW; GLUCOSE, URINE NEGATIVE (NEGATIVE); KETONES,URINE NEGATIVE (NEGATIVE); LEUKOCYTE ESTERASE,URINE LARGE (NEGATIVE); NITRITE,URINE NEGATIVE (NEGATIVE); PROTEIN,URINE NEGATIVE (NEGATIVE); UROBILINOGEN,URINE NEGATIVE mg/dL (<2.0)
[2019-03-21 08:41] LABS: URINE AMPHETAMINES SCREEN NEGATIVE; URINE BARBITURATES SCREEN NEGATIVE; URINE BENZODIAZEPINES SCREEN NEGATIVE; URINE COCAINE SCREEN NEGATIVE; URINE METHADONE SCREEN NEGATIVE; URINE PHENCYCLIDINE SCREEN NEGATIVE
[2019-03-21 08:52] LABS: URINE MARIJUANA (THC) SCREEN UNCONFIRMED POSITIVE
--- NOTE | 2019-03-21 08:59 | Non Stress Test Report ---
Non Stress Test Datetime Report Generated by CPN: 03/21/2019 08:59 DEMOGRAPHIC EGA NST: 40.6 INDICATION Indication for Study (NST) Other: IUP @ 40.6 (Annotations: Data stored by CPN on behalf of user) MONITORING Monitor Explained: Monitor Explained; Test Explained; Patient Verbalized Understanding Time on Monitor: 03/21/2019 08:05 Time off Monitor: 03/21/2019 08:30 NST Duration: 25 NST INTERVENTIONS NST Interventions: PO Hydration; Reposition Patient Physician Notified NST: K Garcia CNM BABY A: [id number] BABY A Movement : Present Contraction Frequency : 7 FHR Baseline : 125 Accelerations : 15X15 (Annotations: Data stored by CPN on behalf of user) Decelerations : None Variability : Moderate 6-25bpm (Annotations: Data stored by CPN on behalf of user) NST Review: Meets Criteria for Reactive NST (Annotations: Data stored by CPN on behalf of user) NST Review and Verified By : Elisa Mccall RNC NST Results: Reactive (Annotations: Data stored by CPN on behalf of user) NST COMMENTS NST Comments: K. Garcia, CNM on unit, reviewed strip. NST REPORT Report Trigger: Send Report
== END 2019-03-21 10:00 | disposition home or self-care (01) ==
LOC: LC 07:50
PROVIDERS: ATTEND Student in an Organized Health Care Education/Training Program
PROC: 4A1HXCZ Monitoring of Products of Conception, Cardiac Rate, External Approach (ICD-10-PCS; principal; 2019-03-21)
DX: Z34.93 Encounter for supervision of normal pregnancy, unspecified, third trimester (principal)
CPT/HCPCS: 59025; 81005; 80307; G0480 ×2; 80349

== ENCOUNTER 2019-12-07 16:22 | Emergency (ER) | payer MEDICAID ==
[2019-12-07 16:30] VITALS: BP 121/48
[2019-12-07] MEDS ORDERED: ACETAMINOPHEN 325 MG TABLET PO ONE (16:42)
--- NOTE | 2019-12-07 16:45 | ER Document Report ---
ED Medical Screen (RME) - General Chief Complaint: Facial Injury Stated Complaint: FACIAL INJURY Time Seen by Provider: 12/07/19 16:38 Primary Care Provider: NADINE BRYANT MD [Primary Care Provider] - Follow up as needed Mode of Arrival: Ambulatory Information source: Patient Notes: HPI; 19-year-old female presents to the emergency room after a trip and fall while running up the stairs hitting her face on the stairs as she fell. States she blacked out for a few seconds after the fall. Complaining of pain to her nose and face, actively bleeding from the nose. She denies any chance of . PE: Alert and oriented x3. Mild distress noted. Tenderness on palpation to the nose. There is tenderness and swelling to the upper lip. Teeth are intact. Active bleeding to the left nare. Negative for nelson signs, negative for raccoon eyes. PERRLA, EOMI. lungs: Clear to auscultation without rales, rhonchi, wheezes. Heart: Regular rate rhythm without murmurs, rubs, gallops. I have greeted and performed a rapid initial assessment of this patient. A comprehensive ED assessment and evaluation of the patient, analysis of test results and completion of the medical decision making process will be conducted by additional ED providers. I have specifically instructed the patient or family members with the patient to immediately return to any nursing staff should anything change in the patient's condition or with their chief complaint. TRAVEL OUTSIDE OF THE [place] IN LAST 30 DAYS: No - Related Data Allergies/Adverse Reactions: No Known Allergies Allergy (Verified 12/07/19 16:37) Past Medical History Renal/ Medical History: Denies: Hx Peritoneal Dialysis Physical Exam - Vital signs Vitals: Temp Pulse Resp BP Pulse Ox 99.0 F 85 20 121/48 L 99 12/07/19 16:28 12/07/19 16:28 12/07/19 16:28 12/07/19 16:28 12/07/19 16:28 Course - Vital Signs Vital signs: Temp Pulse Resp BP Pulse Ox 99.0 F 85 20 121/48 L 99 12/07/19 16:28 12/07/19 16:28 12/07/19 16:28 12/07/19 16:28 12/07/19 16:28 Doctor's Discharge - Discharge Referrals: NADINE BRYANT MD [Primary Care Provider] - Follow up as needed
--- NOTE | 2019-12-07 18:59 | RADIOLOGY REPORT (SQ) ---
EXAM DESCRIPTION: CT HEAD WITHOUT IMAGES COMPLETED DATE/TIME: 12/07/2019 6:50 pm REASON FOR STUDY: head trauma loc COMPARISON: None. TECHNIQUE: Axial images acquired through the brain without intravenous contrast. Images reviewed wit h bone, brain and subdural windows. Images stored on PACS. All CT scanners at this facility use dose modulation, iterative reconstruction, and/or weight based d osing when appropriate to reduce radiation dose to as low as reasonably achievable (ALARA). [facility]: Dose Right [facility]: CareDose [facility]: Dose Right [facility]: Teradose 4D [facility]: Smart EndoStim RADIATION DOSE: CT Rad equipment meets quality standard of care and radiation dose reduction techniq ues were employed. CTDIvol: 53.2 mGy. DLP: 858 mGy-cm.. LIMITATIONS: None. FINDINGS: VENTRICLES: Normal size and contour. CEREBRUM: No masses. No hemorrhage. No midline shift. Age appropriate white matter. No evidence for a cute infarction. CEREBELLUM: No masses. No hemorrhage. No alteration of density. No evidence for acute infarction. EXTRA-AXIAL SPACES: No fluid collections. ORBITS AND GLOBE: No intra- or extraconal masses. Normal contour of globe without masses. CALVARIUM: No fracture. PARANASAL SINUSES: No fluid or mucosal thickening. SOFT TISSUES: No mass or hematoma. OTHER: No other significant finding. IMPRESSION: NO ACUTE INTRACRANIAL FINDINGS. EVIDENCE OF ACUTE STROKE: NO. TECHNICAL DOCUMENTATION: JOB ID: [id number] [place]-72 Quality ID # [id number]: Final reports with documentation of one or more dose reduction techniques (e.g., Au tomated exposure control, adjustment of the mA and/or kV according to patient size, use of iterative reconstruction technique) 2010 [employer]- All Rights Reserved Reading location - IP/workstation name: [email or web address]
--- NOTE | 2019-12-07 19:00 | RADIOLOGY REPORT (SQ) ---
EXAM DESCRIPTION: CT CERVICAL SPINE WITHOUT IMAGES COMPLETED DATE/TIME: 12/07/2019 6:50 pm REASON FOR STUDY: head trauma COMPARISON: None. TECHNIQUE: Axial images acquired through the cervical spine without intravenous contrast. Images re viewed with lung, soft tissue and bone windows. Reconstructed coronal and sagittal MPR images review ed. Images stored on PACS. All CT scanners at this facility use dose modulation, iterative reconstruction, and/or weight based d osing when appropriate to reduce radiation dose to as low as reasonably achievable (ALARA). [facility]: Dose Right [facility]: CareDose [facility]: Dose Right [facility]: Teradose 4D [facility]: Smart [employer] RADIATION DOSE: CT Rad equipment meets quality standard of care and radiation dose reduction techniq ues were employed. CTDIvol: 19.5 mGy. DLP: 405 mGy-cm. mGy. LIMITATIONS: None. FINDINGS: ALIGNMENT: Anatomic. MINERALIZATION: Normal. VERTEBRAL BODIES: No fractures or dislocation. DISCS: No significant disc disease. FACETS, LATERAL MASSES, POSTERIOR ELEMENTS: No fractures. No dislocation. No acute findings. HARDWARE: None in the spine. VISUALIZED RIBS: No fractures. LUNG APICES AND SOFT TISSUES: No significant or acute findings. OTHER: No other significant finding. IMPRESSION: NO ACUTE OR SIGNIFICANT FINDINGS IN THE CERVICAL SPINE. TECHNICAL DOCUMENTATION: JOB ID: [id number] [place]-72 Quality ID # [id number]: Final reports with documentation of one or more dose reduction techniques (e.g., Au tomated exposure control, adjustment of the mA and/or kV according to patient size, use of iterative reconstruction technique) 2010 [employer]- All Rights Reserved Reading location - IP/workstation name: [email or web address]
--- NOTE | 2019-12-07 19:02 | RADIOLOGY REPORT (SQ) ---
EXAM DESCRIPTION: CT FACIAL AREA WITHOUT IMAGES COMPLETED DATE/TIME: 12/07/2019 6:50 pm REASON FOR STUDY: facial trauma COMPARISON: None. TECHNIQUE: Noncontrasted images through the facial bones and orbits windowed for bone and soft tissu e. Additional coronal and sagittal reconstructed images reviewed. All images stored on PACS. All CT scanners at this facility use dose modulation, iterative reconstruction, and/or weight based d osing when appropriate to reduce radiation dose to as low as reasonably achievable (ALARA). [facility]: Dose Right [facility]: CareDose [facility]: Dose Right [facility]: Teradose 4D [facility]: Smart [employer] RADIATION DOSE: CT Rad equipment meets quality standard of care and radiation dose reduction techniq ues were employed. CTDIvol: 30.4 mGy. DLP: 606 mGy-cm. mGy. LIMITATIONS: None. FINDINGS: FACIAL BONES: No fracture or bone lesion. ORBITS: Intact. No fracture. Symmetric intact globes and retroorbital soft tissues. PARANASAL SINUSES: Clear. No significant mucosal thickening, mass or fluid. No nasal polyps. [place] t[place] sinus outlets are patent. SOFT TISSUES: No mass or edema. INFERIOR BRAIN: Limited view. No acute findings. OTHER: No other significant finding. IMPRESSION: NO ACUTE FINDINGS. TECHNICAL DOCUMENTATION: JOB ID: [id number] [place]-72 Quality ID # [id number]: Final reports with documentation of one or more dose reduction techniques (e.g., Au tomated exposure control, adjustment of the mA and/or kV according to patient size, use of iterative reconstruction technique) 2010 [employer]- All Rights Reserved Reading location - IP/workstation name: [employer]
== END 2019-12-07 23:42 | disposition left against medical advice (07) ==
LOC: ER 16:22
DX: S09.93XA Unspecified injury of face, initial encounter (principal); J34.89 Other specified disorders of nose and nasal sinuses; R22.0 Localized swelling, mass and lump, head; W10.9XXA Fall (on) (from) unspecified stairs and steps, initial encounter; Z53.20 Procedure and treatment not carried out because of patient's decision for unspecified reasons
CPT/HCPCS: 99281; 70450; 70486; 72125; J3490